=== PATIENT | male | born 1975 | race Hispanic/Latino ===

== ENCOUNTER 2024-06-11 15:29 | Emergency (ER) | payer BC ==
[~2024-06-11] VITALS: Ht 182.9 cm; Wt 124.7 kg
--- NOTE | 2024-06-11 16:10 | ERN ---
General Chief Complaint: Other Problems Stated Complaint: BLOOD IN CATH Time Seen by MD: 15:38 Time Seen by Midlevel: 15:38 Source: patient History of Present Illness Initial Comments Patient is a 49-year-old male presenting to the emergency department for a PICC line evaluation. Patient was evaluated in our emergency department earlier this month and was admitted for osteomyelitis. He was evaluated by infectious disease specialist recommended the patient get six weeks of antibiotics therapy. He was placed on a PICC line and [facility]. Today while he was driving he noticed blood from his PICC line so he decided to report to the ER for evaluation. On arrival he speci fically denies any pain to the area. Denies any direct trauma or injury. Patient has no other concerns at this time. Allergies: Coded Allergies: No Known Allergies (Unverified Allergy, Unknown, 05/22/24) Home Meds No Active Prescriptions or Reported Meds Past Medical History Past Medical History: High Cholesterol, Sinusitis Past Surgical History: Other Surgical History Other: CIRCUMCISION ROS Dictation CONSTITUTIONAL: Negative except for HPI HEAD/FACE: Negative except for HPI EENT: Negative except for HPI RESPIRATORY: Negative except for HPI GASTROINTESTINAL/ABDOMINAL: Negative except for HPI GENITOURINARY: Negative except for HPI MUSCULOSKELETAL: Negative except for HPI INTEGUMENTARY: Negative except for HPI NEUROLOGICAL/PSYCH: Negative except for HPI HEMATOLOGIC/LYMPHATIC: Negative except for HPI All Systems Negative, Except as noted above. 13 point review of systems assessed and all negative except for above. Physical Exam Physical Exam Dictation Vital Signs reviewed PHYSICAL EXAM: GENERAL: alert,, awake oriented x 3 HEENT: EOMI, Sclera non icteric, moist mucosa NECK: Supple, no JVD, trachea midline LUNGS: Clear breath sounds bilaterally. No wheezes HEART: Regular rate and rhythm. Normal S1 and S2, without murmurs ABD: Abdomen soft, nontender. Bowel sounds present EXT: No clubbing or cyanosis, PICC line in place NEURO: Alert and oriented to person, follows commands MDM MDM: Patient is a 49-year-old male presenting to the emergency department for a PICC line evaluation. Patient was evaluated in our emergency department earlier this month and was admitted for osteomyelitis. He was evaluated by infectious disease specialist recommended the patient get six weeks of antibiotics therapy. He was placed on a PICC line and has been [facility]. Today while he was driving he noticed blood from his PICC line so he decided to report to the ER for evaluation. On arrival he s pecifically denies any pain to the area. Denies any direct trauma or injury. Patient has no other concerns at this time. On physical examination patient has small amounts of bright red blood surrounding the PICC line however there was no evidence of infection. There is no surrounding erythema, induration, or drainable abscess at this time. A chest x-ray was obtained to confirm PICC line placement which appears to be unremarkable. PICC line was redressed and patient will be discharged home with outpatient management. Patient is agreeable with this plan and all questions have been answered Differential diagnosis: PICC line evaluation, cellulitis, PICC line dislodgement There are no social concerns with this patient. Prescription drug management Prescriptions will include: None Medical management and examination interpretation discussions were had by me with other qualified healthcare professionals as indicated for the patient's care. ED Course Orders Procedure Category Date Status Time *Nursing CPOE 06/11/24 Transmitted Communication: 15:43 Chest 1vw RAD 06/11/24 Taken 15:53 Vital Signs Date Time Temp Pulse Resp B/P (MAP) Pulse Ox O2 Delivery O2 Flow Rate FiO2 06/11/24 15:32 94 18 139/100 97 Room Air 0 DX & DISP Disposition: Discharge Departure Impression: Primary Impression: Bleeding from PICC line Condition: Stable Scripts No Active Prescriptions or Reported Meds Additional Instructions: Your chest x-ray shows that your PICC line is in place. Your PICC line was redressed. Follow up with your doctor tomorrow for repeat evaluation. Return to the ER for any new or worsening symptoms Referrals: SELF,REFERRAL (PCP) I have reviewed the case, and I agree with, Diagnosis and Plan I performed the substantive portion of the visit. I have reviewed and personally made and approve the management plan that is documented in the note by myself or the MAXI. I acknowledge for responsibility for the patient's management plan. MALACHI KWOK Jun 11, 2024 16:10
[2024-06-11 16:22] VITALS: BP 132/65; PULSE 78; RESP 20; TEMP 97.8; O2SAT 98
--- NOTE | 2024-06-11 16:27 | NUR ---
PICC LINE DRESSING CAME SATURATED FROM PATIENT ACCIDENTLY PULLING ON PICC LINE WITH JACKET. PICC LINE DRESSING CHANGED USING ASEPTIC TECHNIQUE. BLEEDING CONTROLLED. PATIENT TOLERATED PROCEDURE WELL.
--- NOTE | 2024-06-11 16:48 | HMCIMG ---
CHEST 1VW REASON: picc line eval COMPARISON: None. FINDINGS: Lungs are clear. Heart size is normal. There is no pulmonary vascular congestion. Mediastinum and bony thorax appear unremarkable. PICC catheter entering from right upper extremity distal tip within the superior vena cava in good position. IMPRESSION: Clear lungs. PICC catheter in good position.
--- NOTE | 2024-06-11 17:02 | NUR ---
PATIENT DISCHARGED. UNABLE TO REMOVE FROM TRACKER DUE TO REGISTRATION BEING IN THE CHART.
== END 2024-06-11 17:05 | disposition home or self-care (01) ==
LOC: EDH 15:29
DX: T82.838A Hemorrhage due to vascular prosthetic devices, implants and grafts, initial encounter (principal); E78.00 Pure hypercholesterolemia, unspecified; Y83.8 Other surgical procedures as the cause of abnormal reaction of the patient, or of later complication, without mention of misadventure at the time of the procedure; Y92.89 Other specified places as the place of occurrence of the external cause
CPT/HCPCS: 71045; 99283